=== PATIENT | male | born 1965 | race American Indian/Alaskan Native ===

== ENCOUNTER 2017-06-03 16:25 | Emergency (ER) | payer SELFPAY ==
[2017-06-03 16:31] VITALS: BP 124/87
[2017-06-03] MEDS ORDERED: ROCEPHIN IM ONE (16:57)
[2017-06-03] MEDS ORDERED: ZITHROMAX PO ONE (16:57)
[2017-06-03] MEDS ORDERED: XYLOCAINE 1% MPF 5 mL INFILTRATI ONE (16:57)
[2017-06-03] MEDS ORDERED: FLAGYL PO ONE (16:57)
--- NOTE | 2017-06-03 16:59 | Emergency Department Report ---
ED Male HPI - General Chief complaint: Urogenital-Male Stated complaint: STD EXPOSURE Time Seen by Provider: 06/03/17 16:51 Source: patient Mode of arrival: Ambulatory Limitations: No Limitations - History of Present Illness Initial comments: Patient is a 51-year-old male who is presenting with dysuria and penile discharge. Patient says last week he was sexually active without protection with 2 different females 1 which shows new to him. Patient states he is having some cold clearish yellow penile discharge. Patient denies any nausea vomiting testicular pain or fever at this time. Severity scale (0 -10): 3 Quality: burning Consistency: intermittent Worsens with: urination new sexual partner - Related Data Allergies Allergy/AdvReac Type Severity Reaction Status Date / Time No Known Allergies Allergy Unverified 06/03/17 16:31 ED Review of Systems ROS: Stated complaint: STD EXPOSURE Other details as noted in HPI Comment: All other systems reviewed and negative ED Past Medical Hx - Past Medical History Previous Medical History?: No - Surgical History Past Surgical History?: No - Social History Smoking Status: Never Smoker Substance Use Type: None ED Physical Exam - General Limitations: No Limitations General appearance: alert, in no apparent distress - Head Head exam: Present: atraumatic, normocephalic - Eye Eye exam: Present: normal appearance - ENT ENT exam: Present: mucous membranes moist - Neck Neck exam: Present: normal inspection - Respiratory Respiratory exam: Present: normal lung sounds bilaterally. Absent: respiratory distress - Cardiovascular Cardiovascular Exam: Present: regular rate, normal rhythm. Absent: systolic murmur, diastolic murmur, rubs, gallop - GI/Abdominal GI/Abdominal exam: Present: soft, normal bowel sounds - Rectal Rectal exam: Present: deferred - Extremities Exam Extremities exam: Present: normal inspection - Back Exam Back exam: Present: normal inspection - Neurological Exam Neurological exam: Present: alert, oriented X3 - Psychiatric Psychiatric exam: Present: normal affect, normal mood - Skin Skin exam: Present: warm, dry, intact, normal color. Absent: rash ED Course Vital Signs 06/03/17 16:29 Temperature 98.9 F Pulse Rate 110 H Respiratory 18 Rate Blood Pressure 124/87 O2 Sat by Pulse 95 Oximetry ED Medical Decision Making - Medical Decision Making Patient to be empirically treated for STDs at this time. Critical care attestation.: If time is entered above; I have spent that time in minutes in the direct care of this critically ill patient, excluding procedure time. ED Disposition Clinical Impression: Urethritis Disposition: DC-01 TO HOME OR SELFCARE Is pt being admited?: No Does the pt Need Aspirin: No Condition: Stable Instructions: Nonspecific Urethritis in Men (ED) Forms: STI Treatment and Prevention
== END 2017-06-03 17:28 | disposition home or self-care (01) ==
LOC: ED 16:25
DX: N34.2 Other urethritis (principal)
CPT/HCPCS: 87591; 96372; 99282; J0696